=== PATIENT | male | born 1990 | race Caucasian/White ===

== ENCOUNTER 2018-04-05 09:43 | Emergency (ER) | payer OTHER, SELFPAY ==
[2018-04-05 09:48] VITALS: BP 110/73; PULSE 90; RESP 18; TEMP 36.9; O2SAT 100
--- NOTE | 2018-04-05 09:51 | DI.RAD.S_ITS ---
PROCEDURE: XR CHEST 2V INDICATIONS: cough TECHNIQUE: 2 views of the chest were acquired. COMPARISON: None. FINDINGS: Surgical changes and devices: None. Lungs and pleura: There is a faint hazy opacity projecting over the right lower lobe. No pleural effusions or pneumothorax. Mediastinum: Mediastinal contours are normal. Heart size is normal. Bones and chest wall: No suspicious bony abnormalities. Soft tissues appear unremarkable. IMPRESSION: Faint hazy opacity projecting over the right lower lobe may represent prominent pulmonary vasculature, atelectasis, aspiration, or less likely pneumonia. Clinical correlation recommended. Consider follow up outpatient chest radiograph to ensure resolution. Dictated by: Omar Conrad M.D. on 04/05/2018 at 11:15 Approved by: Omar Conrad M.D. on 04/05/2018 at 11:18
--- NOTE | 2018-04-05 11:15 | ED.URI ---
HPI - URI/Sore Throat General Chief Complaint: Upper Respiratory Symptoms Stated Complaint: states fluid in chest, fever x3days Time Seen by Provider: 04/05/18 10:24 Source: patient Mode of arrival: ambulatory Limitations: no limitations History of Present Illness HPI Narrative: 28-year-old male comes to the emergency department with complaint of fevers, cough cold and congestion that started on . Patient states that symptoms have continued. He states he has had some chills. Patient has not had any shortness of breath, no chest pain, no vomiting. No swelling of his lower extremities. No lightheadedness or passing out. Patient states he was concerned because his is . He states she has not been symptomatic. Patient denies any other past medical history. He has been taking ibuprofen or Tylenol as needed for fevers. Related Data Previous Rx's Medication Instructions Recorded esomeprazole magnesium [Nexium] 40 mg PO QDAY #14 cap 11/21/16 Allergies Allergy/AdvReac Type Severity Reaction Status Date / Time No Known Allergies Allergy Uncoded 06/05/17 12:47 Review of Systems Review of Systems ROS Unobtainable: All systems reviewed & are unremarkable except as noted in HPI and below Constitutional Reports chills, Reports fever(s), Denies lethargy and Denies weakness ENT Ears, Nose, Mouth, and Throat: Reports nasal congestion Cardiovascular Denies chest pain, Denies dyspnea and Denies dyspnea on exertion Respiratory Denies change in phlegm color, Denies chest congestion, Reports cough, Denies excessive phlegm production, Denies pain on inspiration, Denies dyspnea, Denies dyspnea on exertion and Denies wheezing Gastrointestinal Gastrointestinal: Denies abdominal pain, Denies change in bowel habits, Denies diarrhea, Denies nausea and Denies vomiting Musculoskeletal Reports myalgias Integumentary/Breasts Denies rash Neurologic Denies weakness Allergic/Immunologic Denies wheezing [facility] Social History Smoking Status: Never smoker Social History Smoking Status: Never smoker Exam Narrative Exam Narrative: GEN: well nourished, well appearing male, alert and oriented x 3, patient appears to be in mild distress. HEENT: Atraumatic, pupils are equal round reactive to light, extraocular movements are intact, nares mild clear rhinorrhea, TMs are clear with no fluid, there is no conjunctival pallor. Throat is clear without any exudates, erythema, tonsillar enlargement or uvular deviation HEART: Regular rate and rhythm without murmur, clicks, rubs. LUNGS:Lungs clear to auscultation, no wheezes, rales, crackles, chest moves symmetrically ABD:bowel sounds normal, soft, non-tender, no guarding, rebound, rigidity, no masses noted, no hepatosplenomegaly MSCL: Non-tender, no muscle atrophy, muscles strength 5/5 upper and lower extremities, full range of motion, normal gait NEURO:CN 2-12 intact, sensation normal Initial Vital Signs Initial Vital Signs: Vital Signs Temperature 98.4 F 04/05/18 09:48 Pulse Rate 90 04/05/18 09:48 Respiratory Rate 18 04/05/18 09:48 Blood Pressure 110/73 04/05/18 09:48 Pulse Oximetry 100 04/05/18 09:48 Course Orders Ordered: ED Orders 04/05/18 09:51 XR chest 2V Stat 04/05/18 09:52 FLU A and B [Influenza A and B by PCR Rapid] Stat Vital Signs - 8 hr 04/05/18 11:29 Temperature 98.0 F Pulse Rate 89 Respiratory Rate 14 Blood Pressure [Right Arm] 118/71 Pulse Oximetry 100 MDM - URI/Sore Throat Lab Data Attestation: I reviewed the patient's lab results. Lab Results 04/05/18 Range/Units 09:52 Influenza A & B (PCR) Positive, type a A (Negative) Imaging Data Chest x-ray: Radiologist's impression: [address] [address] XRay Report Signed Patient: Quentin Rosas PMR#: [id number] : 1990Acct:[id number] Age/Sex: 28 / MDate of Service: 04/05/18 Loc: ED Accession Number: [id number] Procedure: XR chest 2V Ordering Provider: July Moreno D.O. PROCEDURE: XR CHEST 2V INDICATIONS: cough TECHNIQUE: 2 views of the chest were acquired. COMPARISON: None. FINDINGS: Surgical changes and devices: None. Lungs and pleura: There is a faint hazy opacity projecting over the right lower lobe. No pleural effusions or pneumothorax. Mediastinum: Mediastinal contours are normal. Heart size is normal. Bones and chest wall: No suspicious bony abnormalities. Soft tissues appear unremarkable. IMPRESSION: Faint hazy opacity projecting over the right lower lobe may represent prominent pulmonary vasculature, atelectasis, aspiration, or less likely pneumonia. Clinical correlation recommended. Consider follow up outpatient chest radiograph to ensure resolution. Dictated by: Omar Conrad M.D. on 04/05/2018 at 11:15 Approved by: Omar Conrad M.D. on 04/05/2018 at 11: MDM Narrative Medical decision making narrative: Patient is outside the window for Tamiflu. We discussed that also would not decrease all risk of transmission to his at this time as he has already been around her since . When his fever started. Did discuss that she would be off work, he defers a work note. 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 Discussed signs and symptoms to watch out for and reasons to return. Discharge Plan Departure Patient Disposition: Home Clinical Impression: Influenza Discharge Date/Time: 04/05/18 12:13 Interventions: ED Discharge Assessment Last Done: 04/05/18 12:11 Instructions: DI for Influenza -- Adult Activity Restrictions/Additional Instructions: Follow-up with primary care if your symptoms are not resolving in the next 7-10 days. Continue ibuprofen and/or Tylenol as needed for fevers and muscle aches. Make sure your drinking plenty of fluids and staying hydrated. Return to the emergency department for persistent fevers that do not respond ibuprofen or Tylenol, shortness of breath, chest pain, passing out or lightheadedness, persistent vomiting, coughing up yellow or green phlegm or other new or concerning symptoms. Prescriptions: No Action esomeprazole magnesium [Nexium] 40 MG capsule,delayed release(DR/EC) 40 mg PO QDAY Qty: 14 RF: 0
--- NOTE | 2018-04-05 11:28 | ED_ITS ---
HPI - URI/Sore Throat General Chief Complaint: Upper Respiratory Symptoms Stated Complaint: states fluid in chest, fever x3days Time Seen by Provider: 04/05/18 10:24 Source: patient Mode of arrival: ambulatory Limitations: no limitations History of Present Illness HPI Narrative: 28-year-old male comes to the emergency department with complaint of fevers, cough cold and congestion that started on . Patient states that symptoms have continued. He states he has had some chills. Patient has not had any shortness of breath, no chest pain, no vomiting. No swelling of his lower extremities. No lightheadedness or passing out. Patient states he was concerned because his is . He states she has not been symptomatic. Patient denies any other past medical history. He has been taking ibuprofen or Tylenol as needed for fevers. Related Data Previous Rx's Medication Instructions Recorded esomeprazole magnesium [Nexium] 40 mg PO QDAY #14 cap 11/21/16 Allergies Allergy/AdvReac Type Severity Reaction Status Date / Time No Known Allergies Allergy Uncoded 06/05/17 12:47 Review of Systems Review of Systems ROS Unobtainable: All systems reviewed & are unremarkable except as noted in HPI and below Constitutional Reports chills, Reports fever(s), Denies lethargy and Denies weakness ENT Ears, Nose, Mouth, and Throat: Reports nasal congestion Cardiovascular Denies chest pain, Denies dyspnea and Denies dyspnea on exertion Respiratory Denies change in phlegm color, Denies chest congestion, Reports cough, Denies excessive phlegm production, Denies pain on inspiration, Denies dyspnea, Denies dyspnea on exertion and Denies wheezing Gastrointestinal Gastrointestinal: Denies abdominal pain, Denies change in bowel habits, Denies diarrhea, Denies nausea and Denies vomiting Musculoskeletal Reports myalgias Integumentary/Breasts Denies rash Neurologic Denies weakness Allergic/Immunologic Denies wheezing [facility] Social History Smoking Status: Never smoker Social History Smoking Status: Never smoker Exam Narrative Exam Narrative: GEN: well nourished, well appearing male, alert and oriented x 3, patient appears to be in mild distress. HEENT: Atraumatic, pupils are equal round reactive to light, extraocular movements are intact, nares mild clear rhinorrhea, TMs are clear with no fluid, there is no conjunctival pallor. Throat is clear without any exudates, erythema, tonsillar enlargement or uvular deviation HEART: Regular rate and rhythm without murmur, clicks, rubs. LUNGS:Lungs clear to auscultation, no wheezes, rales, crackles, chest moves symmetrically ABD:bowel sounds normal, soft, non-tender, no guarding, rebound, rigidity, no masses noted, no hepatosplenomegaly MSCL: Non-tender, no muscle atrophy, muscles strength 5/5 upper and lower extremities, full range of motion, normal gait NEURO:CN 2-12 intact, sensation normal Initial Vital Signs Initial Vital Signs: Vital Signs Temperature 98.4 F 04/05/18 09:48 Pulse Rate 90 04/05/18 09:48 Respiratory Rate 18 04/05/18 09:48 Blood Pressure 110/73 04/05/18 09:48 Pulse Oximetry 100 04/05/18 09:48 Course Orders Ordered: ED Orders 04/05/18 09:51 XR chest 2V Stat 04/05/18 09:52 FLU A and B [Influenza A and B by PCR Rapid] Stat Vital Signs - 8 hr 04/05/18 11:29 Temperature 98.0 F Pulse Rate 89 Respiratory Rate 14 Blood Pressure [Right Arm] 118/71 Pulse Oximetry 100 MDM - URI/Sore Throat Lab Data Attestation: I reviewed the patient's lab results. Lab Results 04/05/18 Range/Units 09:52 Influenza A & B (PCR) Positive, type a A (Negative) Imaging Data Chest x-ray: Radiologist's impression: [address] [address] XRay Report Signed Patient: Quentin Rosas PMR#: [id number] : 1990Acct:[id number] Age/Sex: 28 / MDate of Service: 04/05/18 Loc: ED Accession Number: [id number] Procedure: XR chest 2V Ordering Provider: July Moreno D.O. PROCEDURE: XR CHEST 2V INDICATIONS: cough TECHNIQUE: 2 views of the chest were acquired. COMPARISON: None. FINDINGS: Surgical changes and devices: None. Lungs and pleura: There is a faint hazy opacity projecting over the right lower lobe. No pleural effusions or pneumothorax. Mediastinum: Mediastinal contours are normal. Heart size is normal. Bones and chest wall: No suspicious bony abnormalities. Soft tissues appear unremarkable. IMPRESSION: Faint hazy opacity projecting over the right lower lobe may represent prominent pulmonary vasculature, atelectasis, aspiration, or less likely pneumonia. Clinical correlation recommended. Consider follow up outpatient chest radiograph to ensure resolution. Dictated by: Omar Conrad M.D. on 04/05/2018 at 11:15 Approved by: Omar Conrad M.D. on 04/05/2018 at 11: MDM Narrative Medical decision making narrative: Patient is outside the window for Tamiflu. We discussed that also would not decrease all risk of transmission to his at this time as he has already been around her since . When his fever started. Did discuss that she would be off work, he defers a work note. Tory yao and I did discuss he is can contact her inventory specialist did discuss if Tamiflu would be appropriate especially if she develops fevers. Discussed signs and symptoms to watch out for and reasons to return. Discharge Plan Departure Patient Disposition: Home Clinical Impression: Influenza Discharge Date/Time: 04/05/18 12:13 Interventions: ED Discharge Assessment Last Done: 04/05/18 12:11 Instructions: DI for Influenza -- Adult Activity Restrictions/Additional Instructions: Follow-up with primary care if your symptoms are not resolving in the next 7-10 days. Continue ibuprofen and/or Tylenol as needed for fevers and muscle aches. Make sure your drinking plenty of fluids and staying hydrated. Return to the emergency department for persistent fevers that do not respond ibuprofen or Tylenol, shortness of breath, chest pain, passing out or lightheadedness, persistent vomiting, coughing up yellow or green phlegm or other new or concerning symptoms. Prescriptions: No Action esomeprazole magnesium [Nexium] 40 MG capsule,delayed release(DR/EC) 40 mg PO QDAY Qty: 14 RF: 0
[2018-04-05 11:29] VITALS: BP 118/71; PULSE 89; RESP 14; TEMP 36.7; O2SAT 100
== END 2018-04-05 12:13 | disposition home or self-care (01) ==
PROVIDERS: Emergency Provider Emergency Medicine
DX: J11.1 Influenza due to unidentified influenza virus with other respiratory manifestations (principal)
CPT/HCPCS: 71046; 87400; 99282; 99284